=== PATIENT | female | born 1995 ===

== ENCOUNTER 2017-08-11 07:29 | Inpatient (IN) ==
[2017-08-11] MEDS ORDERED: ONDANSETRON 4 MG/2 ML VIAL IV PRN (07:45)
[2017-08-11] MEDS ORDERED: BUTORPHANOL 2 MG/ML VIAL IV PRN (07:45)
[2017-08-11] MEDS ORDERED: OXYTOCIN/LR 20 UNIT/1,000 ML BAG IV SCH (08:00)
[2017-08-11] MEDS: LACTATED RINGERS 1,000 ML IV SCH ×2 (08:07→09:51)
[2017-08-11 08:12] LABS: Basophils % 0.3 % (0.0-0.8); Eosinophils % 0.2 % (0.00-10.9); Hematocrit 29.8 VOL% (35.7-47.0); Hemoglobin 9.6 GM/DL (12.0-16.0); Immature Granulocytes % 0.8 %; Immature Granulocytes Absolute 0.05 #; Lymphocytes # 1.7 10*3/uL (1.4-4.0); Mean Corpuscular HGB Conc 32.2 GM/DL (32-36); Mean Corpuscular Hemoglobin 26 PG (27-34); Mean Corpuscular Volume 82.1 FL (87-102); Mean Platelet Volume 9.3 FL (9.6-12.0); Monocytes # 0.5 10*3/uL (0.11-0.8); Monocytes % 6.9 % (1.7-12.7); NRBC # 0.03 10*3/uL; Neutrophils # 4.3 10*3/uL (1.4-7.4); Neutrophils % 65.8 % (38.7-73.9); Platelet Count 253 T/CUMM (130-400); Red Blood Count 3.63 MC/CUMM (3.8-5.5); Red Cell Distribution Width 16.8 % (9.3-17.3); White Blood Count 6.5 T/CUMM (4-12)
[2017-08-11 08:38] LABS: Albumin 2.7 G/DL (3.4-5.0); Bilirubin,Total 0.5 MG/DL (0.2-1.0); Calcium 8.3 MG/DL (8.5-10.1); Osmolality,Calculated 274.5 MOS/KG (273-304); Potassium 3.6 MMOL/L (3.5-5.1); Total Protein 6.2 G/DL (6.4-8.3); Uric Acid 4.6 MG/DL (2.6-6.0)
[2017-08-11] MEDS ORDERED: FAMOTIDINE 20 MG/2 ML VIAL IV ONE (09:55)
[2017-08-11] MEDS ORDERED: PROMETHAZINE 25 MG/1 ML VIAL IM ONE (09:55)
[2017-08-11] MEDS ORDERED: diphenhydrAMINE 50 MG/1 ML VIAL IV PRN ×2 (09:55)
[2017-08-11] MEDS ORDERED: ePHEDrine 50 MG/ML AMP IV PRN (09:55)
[2017-08-11] MEDS ORDERED: CITRIC ACID/SODIUM CITRATE 30 ML UDCUP PO ONE (09:55)
[2017-08-11] MEDS ORDERED: ONDANSETRON 4 MG/2 ML VIAL IV ONE (09:55)
[2017-08-11] MEDS ORDERED: hydrOXYzine HCL 25 MG/1 ML VIAL IM PRN (09:55)
[2017-08-11] MEDS ORDERED: LACTATED RINGERS 1,000 ML IV SCH ×2 (10:00)
[2017-08-11] MEDS ORDERED: fentaNYL 2 MCG/ROPIV 0.2% EPID 150 ML EPIDURAL SCH (10:00)
[2017-08-11] MEDS ORDERED: oxyCODONE/ACETAMINOPHEN 5-325 MG TABLET PO PRN (17:17)
[2017-08-11] MEDS: oxyCODONE/ACETAMINOPHEN 5-325 MG TABLET PO PRN ×2 (17:22→23:32)
[2017-08-11] MEDS: IBUPROFEN 800 MG TABLET PO PRN (19:33)
[2017-08-12] MEDS: IBUPROFEN 800 MG TABLET PO PRN ×3 (06:12→20:47)
[2017-08-12 06:40] LABS: Basophils % 0.3 % (0.0-0.8); Eosinophils # 0.1 10*3/uL (0.0-0.87); Eosinophils % 0.9 % (0.00-10.9); Hematocrit 24.1 VOL% (35.7-47.0); Hemoglobin 7.6 GM/DL (12.0-16.0); Immature Granulocytes % 0.7 %; Immature Granulocytes Absolute 0.05 #; Lymphocytes # 2.1 10*3/uL (1.4-4.0); Lymphocytes % 30.6 % (21.3-54.2); Mean Corpuscular HGB Conc 31.5 GM/DL (32-36); Mean Corpuscular Hemoglobin 26 PG (27-34); Mean Corpuscular Volume 83.7 FL (87-102); Mean Platelet Volume 9.2 FL (9.6-12.0); Monocytes # 0.4 10*3/uL (0.11-0.8); Monocytes % 5.8 % (1.7-12.7); Neutrophils # 4.3 10*3/uL (1.4-7.4); Neutrophils % 61.7 % (38.7-73.9); Platelet Count 193 T/CUMM (130-400); Red Blood Count 2.88 MC/CUMM (3.8-5.5); Red Cell Distribution Width 16.8 % (9.3-17.3); White Blood Count 6.9 T/CUMM (4-12)
[2017-08-12] MEDS: oxyCODONE/ACETAMINOPHEN 5-325 MG TABLET PO PRN ×3 (07:24→20:48)
[2017-08-12] MEDS: FERROUS SULFATE 325 MG TABLET PO SCH ×2 (09:03→20:47)
[2017-08-12] MEDS: DOCUSATE SODIUM 100 MG CAPSULE PO SCH ×2 (09:03→20:47)
[2017-08-12] MEDS ORDERED: oxyCODONE/ACETAMINOPHEN 5-325 MG TABLET PO PRN (13:14)
[2017-08-12] MEDS ORDERED: PROMETHAZINE 25 MG/1 ML VIAL IM PRN (15:13)
[2017-08-12] MEDS ORDERED: MEPERIDINE 50 MG/1 ML VIAL IM PRN (15:13)
[2017-08-13] MEDS: oxyCODONE/ACETAMINOPHEN 5-325 MG TABLET PO PRN ×3 (02:19→11:27)
[2017-08-13] MEDS: IBUPROFEN 800 MG TABLET PO PRN ×2 (02:19→07:56)
[2017-08-13 07:30] VITALS: BP 101/69
[2017-08-13] MEDS: DOCUSATE SODIUM 100 MG CAPSULE PO SCH (09:18)
[2017-08-13] MEDS: FERROUS SULFATE 325 MG TABLET PO SCH (09:18)
== END 2017-08-13 13:20 | disposition home or self-care (01) | DRG 560 ==
LOC: N.LDOUT 07:29 → N.LD 07:33 → N.OB 16:00
PROVIDERS: ADMIT Obstetrics & Gynecology; ATTEND Obstetrics & Gynecology

== ENCOUNTER 2021-04-24 04:58 | Inpatient (IN) ==
[2021-04-24] MEDS ORDERED: TRANEXAMIC ACID 1,000 MG/10 ML VIAL ONE (05:17)
[2021-04-24] MEDS ORDERED: SODIUM CHLORIDE 0.9% 0 ML IV ONE (05:17)
[2021-04-24] MEDS ORDERED: miSOPROStoL 200 MCG TABLET ONE (05:17)
[2021-04-24] MEDS ORDERED: OXYTOCIN/LR 20 UNIT/1,000 ML BAG IV ONE ×2 (05:17→06:12)
[2021-04-24] MEDS ORDERED: METHYLERGONOVINE 0.2 MG/1 ML AMP ONE (05:18)
[2021-04-24] MEDS ORDERED: CARBOPROST TROMETHAMINE 250 MCG/ML AMP IM ONE (05:18)
[2021-04-24] MEDS ORDERED: BUTORPHANOL 2 MG/ML VIAL IV PRN (05:22)
[2021-04-24] MEDS ORDERED: ONDANSETRON 4 MG/2 ML VIAL IV PRN ×2 (05:22→06:12)
[2021-04-24] MEDS ORDERED: MEPERIDINE 50 MG/1 ML VIAL IV PRN (05:22)
[2021-04-24] MEDS ORDERED: OXYTOCIN/LR 20 UNIT/1,000 ML BAG IV SCH (05:30)
[2021-04-24] MEDS ORDERED: OXYTOCIN/LR 30 UNIT/1,000 ML BAG IV ONE (05:30)
[2021-04-24] MEDS ORDERED: LACTATED RINGERS 1,000 ML IV SCH (05:30)
[2021-04-24 05:45] LABS: Cord Arterial Blood HCO3 20.8 MMOL/L; Cord Venous Blood HCO3 21.4 MMOL/L; Cord Venous Blood PCO2 39.6 MMHG; Cord Venous Blood PO2 35.6
[2021-04-24] MEDS ORDERED: HYDROCORTISONE 2.5% RECTAL CREAM 30 GM TUBE TOP PRN (06:12)
[2021-04-24] MEDS ORDERED: BISACODYL 10 MG SUPP RECTAL PRN (06:12)
[2021-04-24] MEDS ORDERED: BENZOCAINE 20%/MENTHOL 0.5% SPRAY 56 GM CAN TOP PRN (06:12)
[2021-04-24] MEDS ORDERED: RHO(D) IMMUNE GLOBULIN 300 MCG SYRINGE IM ONE (06:12)
[2021-04-24] MEDS ORDERED: WITCH HAZEL PADS 100/JAR TOP PRN (06:12)
[2021-04-24] MEDS ORDERED: ACETAMINOPHEN 325 MG TABLET PO PRN (06:12)
[2021-04-24] MEDS ORDERED: MEASLES/MUMPS/RUBELLA VACCINE 0.5 ML VIAL SUBCUT ONE (06:12)
[2021-04-24] MEDS ORDERED: oxyCODONE/ACETAMINOPHEN 5-325 MG TABLET PO PRN (06:12)
[2021-04-24] MEDS ORDERED: DIPH/TET/ACEL PERT BOOSTER VACCINE 0.5 ML VIAL IM ONE (06:12)
[2021-04-24] MEDS ORDERED: LANOLIN 50% CREAM 0.3 OZ TUBE TOP PRN (06:12)
[2021-04-24 06:14] LABS: Basophils % 0.2 % (0.0-0.8); Eosinophils % 0.2 % (0.00-10.9); Hematocrit 28.9 VOL% (35.7-47.0); Hemoglobin 8.7 GM/DL (12.0-16.0); Immature Granulocytes % 0.6 %; Immature Granulocytes Absolute 0.06 #; Lymphocytes # 1.5 10*3/uL (1.4-4.0); Lymphocytes % 14.9 % (21.3-54.2); Mean Corpuscular HGB Conc 30.1 GM/DL (32-36); Mean Corpuscular Volume 80.3 FL (87-102); Mean Platelet Volume 9.1 FL (9.6-12.0); NRBC # 0.02 10*3/uL; Neutrophils % 79.1 % (38.7-73.9); Platelet Count 387 T/CUMM (130-400); Red Cell Distribution Width 15.8 % (9.3-17.3); White Blood Count 10.2 T/CUMM (4-12)
[2021-04-24 06:18] LABS: Albumin 2.3 G/DL (3.4-5.0); Bilirubin,Total 0.8 MG/DL (0.20-1.00); Calcium 8.4 MG/DL (8.5-10.1); Osmolality,Calculated 275.7 MOS/KG (273-304); Potassium 4.1 MMOL/L (3.5-5.1); Total Protein 6.4 G/DL (6.4-8.2); Uric Acid 3.1 MG/DL (2.6-6.0)
[2021-04-24 06:33] LABS: Hepatitis B Surface Ag Quant < 0.10 Index; Hepatitis B Surface Ag Result Non-Reactive (NonReactive)
[2021-04-24 06:41] LABS: Rubella Antibody IgG Result Reactive (NonReactive)
[2021-04-24 06:47] LABS: HIV Antigen/Antibody Result Nonreactive (Nonreactive)
[2021-04-24] MEDS: IBUPROFEN 800 MG TABLET PO PRN ×3 (08:24→20:41)
[2021-04-24] MEDS: oxyCODONE/ACETAMINOPHEN 5-325 MG TABLET PO PRN ×3 (10:18→22:37)
[2021-04-24] MEDS: DOCUSATE SODIUM 100 MG CAPSULE PO SCH ×2 (11:51→20:40)
[2021-04-24] MEDS: FERROUS SULFATE 325 MG TABLET PO SCH ×2 (11:51→17:10)
[2021-04-25] MEDS: IBUPROFEN 800 MG TABLET PO PRN ×3 (02:25→21:36)
[2021-04-25] MEDS: oxyCODONE/ACETAMINOPHEN 5-325 MG TABLET PO PRN ×4 (04:56→23:12)
[2021-04-25 06:01] LABS: Basophils % 0.3 % (0.0-0.8); Eosinophils # 0.1 10*3/uL (0.0-0.87); Eosinophils % 0.5 % (0.00-10.9); Hematocrit 27.3 VOL% (35.7-47.0); Hemoglobin 8.4 GM/DL (12.0-16.0); Immature Granulocytes % 0.9 %; Immature Granulocytes Absolute 0.09 #; Lymphocytes # 2.6 10*3/uL (1.4-4.0); Lymphocytes % 26.1 % (21.3-54.2); Mean Corpuscular HGB Conc 30.8 GM/DL (32-36); Mean Platelet Volume 9.1 FL (9.6-12.0); Monocytes % 6.9 % (1.7-12.7); NRBC # 0.05 10*3/uL; Neutrophils % 65.3 % (38.7-73.9); Platelet Count 431 T/CUMM (130-400); Red Blood Count 3.37 MC/CUMM (3.8-5.5); Red Cell Distribution Width 16.3 % (9.3-17.3); White Blood Count 10.1 T/CUMM (4-12)
[2021-04-25] MEDS: FERROUS SULFATE 325 MG TABLET PO SCH ×2 (08:27→17:07)
[2021-04-25] MEDS: DOCUSATE SODIUM 100 MG CAPSULE PO SCH ×2 (08:27→21:36)
[2021-04-26] MEDS: IBUPROFEN 800 MG TABLET PO PRN ×2 (03:20→10:13)
[2021-04-26] MEDS: oxyCODONE/ACETAMINOPHEN 5-325 MG TABLET PO PRN ×2 (05:02→10:14)
[2021-04-26] MEDS: FERROUS SULFATE 325 MG TABLET PO SCH (08:00)
[2021-04-26] MEDS: DOCUSATE SODIUM 100 MG CAPSULE PO SCH (08:01)
[2021-04-26 08:31] VITALS: BP 105/63
== END 2021-04-26 14:53 | disposition home or self-care (01) | DRG 807 ==
LOC: N.LD 04:58 → N.OB 10:50
PROVIDERS: ADMIT Obstetrics & Gynecology; ATTEND Obstetrics & Gynecology